=== PATIENT | female | born 1970 | race Caucasian/White ===

== ENCOUNTER 2016-08-24 18:20 | Emergency (ER) | payer MEDICAID ==
[~2016-08-24 18:20] MED LIST: BYSTOLIC10 MG PO; CARAFATE1 GM PO; CHANTIX1 MG TD; CLEOCIN HCL300 MG PO; CYMBALTA60 MG PO; FISH OIL500 M1 PO; FLEXERIL-DPS10 MG PO; HABITROL DPS21 MG TD; HCTZ12.5 MG PO; LIDODERM PATC1 PATCH TD; MOBIC15 MG PO; NITROSTAT0.4 MG SL; PRILOSEC20 MG PO; TYLENOL325 MG PO; ULTRAM DPS50 MG PO; XANAX1 MG PO; ZOLOFT100 MG PO; ZYPREXA5 MG PO
--- NOTE | 2016-08-29 07:25 | ER ---
ADMIT: 08/24/2016 RM/LOC: ER [facility] MR#: [id number] [facility] [address] [place], [place] [id number] JOSÉ MANUEL LARKIN [address] [place] [address] Emergency Room Report SEX: F AGE: 46 : 1970 DATE: 08/24/2016 CHIEF COMPLAINT: Back pain. HISTORY OF PRESENT ILLNESS: The patient is a 46-year-old female with a long history of chronic back pain and previous back surgeries. She states that today she was helping a friend clean some apartments, doing some lifting and vacuuming and states she is having worsening pain today. She does have some pain medications prescribed to her, but she is running out today, and she is not able to see Lisa Akins, her provider, until 4 days. She denies any falls. She does not have any fevers, chills, nausea, vomiting, short of breath, or chest pain. PAST MEDICAL HISTORY: Previous back injuries and back pain that is chronic. High cholesterol. Previous back surgery with fusion. MEDICATIONS: See nurse's note. ALLERGIES: NONE. SOCIAL HISTORY: Smokes half pack a day. Denies drug use. Does occasionally use alcohol. PHYSICAL EXAMINATION: Unremarkable. She has no known neurologic findings of her lower extremities appreciated. MEDICAL DECISION MAKING: The patient is told that the ER is not the appropriate place to get chronic pain medications, but considering situation, I did decide to give her 12 Ultram, 12 Flexeril, and 12 Xanax. She is told that she is to follow up with Lisa Akins as soon as possible. DIAGNOSIS: Chronic back pain. Cleve Mccann MD/ gregorio JOB #: [id number] CC: Cleve Mccann MD, Attending Physician GOLDIE Pulido, Family Physician
== END 2016-08-24 19:12 | disposition home or self-care (01) ==
LOC: ER 18:20
DX: M54.9 Dorsalgia, unspecified (principal); G89.29 Other chronic pain; F17.210 Nicotine dependence, cigarettes, uncomplicated; E78.00 Pure hypercholesterolemia, unspecified; I10 Essential (primary) hypertension; I25.10 Atherosclerotic heart disease of native coronary artery without angina pectoris; Z98.890 Other specified postprocedural states; Z79.899 Other long term (current) drug therapy